=== PATIENT | male | born 1995 | race Hispanic/Latino ===

== ENCOUNTER → 2017-12-02 | Outpatient (REF) | payer OTHER ==
[2017-12-03 13:27] LABS: CHLAMYDIA DNA AMPLIFICATION NEGATIVE (NEGATIVE); GC DNA AMPLIFICATION NEGATIVE (NEGATIVE)
== END ==
LOC: M SFHCLERA 20:22
DX: Z20.2 Contact with and (suspected) exposure to infections with a predominantly sexual mode of transmission (principal)
CPT/HCPCS: 87591